=== PATIENT | female | born 1965 | race Caucasian/White ===

== ENCOUNTER 2019-03-12 06:33 | Day surgery (SDC) | payer BC ==
[~2019-03-12 06:33] MED LIST: Acetaminophen TAB* 325 MG PO ONE; Buffered Lidocaine 1% SYRIN* 1 ML/SYRINGE INTRADERM ONE; Famotidine IV* 10 MG/ML 2 ML (20 mg) IV ONE; Lactated Ringers 1000 ML Bag* 1,000 ML IV SCH
[2019-03-12] MEDS ORDERED: Famotidine IV* 10 MG/ML 2 ML (20 mg) ONE (07:03)
[2019-03-12] MEDS ORDERED: ceFAZolin 2 GM PREMIX in ORs 2 GM/50 ML BAG IVPB ONE (07:03)
[2019-03-12] MEDS ORDERED: Dexamethasone IV* 4 MG/ML 1 ML (4 MG) ONE ×2 (07:19→07:58)
[2019-03-12] MEDS ORDERED: Bupivacaine 0.5% SDV PF* 30ML VIAL ONE (07:19)
[2019-03-12] MEDS ORDERED: Lidocaine 1% INJ* 10 MG/ML 30 ML SDV ONE (07:19)
[2019-03-12] MEDS ORDERED: Midazolam* 1 MG/ML 2 ML VIAL (2 MG) ONE (07:21)
[2019-03-12] MEDS ORDERED: fentaNYL* 50 MCG/ML 2 ML VIAL (100 MCG VIAL) ONE ×2 (07:21→09:19)
[2019-03-12] MEDS ORDERED: Acetaminophen TAB* 325 MG ONE (07:28)
[2019-03-12] MEDS ORDERED: Acetaminophen IV 1GM/100ML * 100 ML ONE (07:34)
[2019-03-12] MEDS ORDERED: Ondansetron INJ* 2 MG/ML VIAL ONE (07:58)
[2019-03-12] MEDS ORDERED: Lidocaine 2% PF * 5 ML VIAL ONE (07:58)
[2019-03-12] MEDS ORDERED: Ketorolac INJ* 30 MG/ML 1 ML VIAL ONE (07:58)
[2019-03-12] MEDS ORDERED: Propofol* 10 MG/ML 20 ML BTL ONE (07:58)
[2019-03-12] MEDS ORDERED: Naloxone* 0.4 MG/ML 1 ML VIAL IV PRN (08:06)
[2019-03-12] MEDS ORDERED: fentaNYL* 50 MCG/ML 2 ML VIAL (100 MCG VIAL) IV PRN (08:06)
[2019-03-12] MEDS ORDERED: PROCHLORPERAZINE INJ 5 MG/ML 2 ML VIAL IV PRN (08:06)
[2019-03-12] MEDS ORDERED: diPHENhydraMINE IV* 50 MG/ML 1 ml VIAL (BENADRYL) IV PRN (08:06)
[2019-03-12] MEDS ORDERED: Ondansetron INJ* 2 MG/ML VIAL IV PRN (08:06)
[2019-03-12] MEDS ORDERED: Acetaminophen IV 1GM/100ML * 1,000 MG/100 ML VIAL IVPB ONE (08:06)
[2019-03-12] MEDS ORDERED: HYDROcodone/ACETAMIN 5-325 MG* 1 TAB PO PRN ×2 (08:06)
[2019-03-12] MEDS ORDERED: DiMENhydriNATE IV* 50 MG/ML VIAL IV PUSH PRN (08:06)
[2019-03-12] MEDS ORDERED: DiMENhydriNATE IV* 50 MG/ML VIAL ONE (10:55)
[2019-03-12 11:20] VITALS: BP 110/66
--- NOTE | 2019-03-12 13:17 | OP ---
DATE OF OPERATION: 03/12/19 - [facility] DATE OF : 61 SURGEON: Michelet Porter DPM DIRECTOR OF GUIDANCE IN [employer]: None. ANESTHESIA: General. PRE-OPERATIVE DIAGNOSES: 1. Painful bunion deformity with hallux limitus, left foot. 2. Painful second left hammertoe. 3. Painful tailor's bunion deformity, left foot. POST-OPERATIVE DIAGNOSES: 1. Painful bunion deformity with hallux limitus, left foot. 2. Painful second left hammertoe. 3. Painful tailor's bunion deformity, left foot. OPERATIVE PROCEDURE: 1. Bunionectomy with closing-base wedge osteotomy, left foot. 2. Correction of second left hammertoe with PIPJ arthroplasty and MTPJ capsulotomy and extensor hallucis longus tendon lengthening of second digit, left foot. 3. Tailor's bunionectomy. 4. Fifth metatarsal osteotomy, left foot. PATHOLOGY: Degenerative bone. HEMOSTASIS: Pneumatic ankle tourniquet at 250 mmHg. ESTIMATED BLOOD LOSS: Less than 30 cc. MATERIALS: Four of the 3.0 mm cannulated Víctor screws. INDICATIONS: The patient with chronic left forefoot pain and deformity with large bunion and tailor's bunion deformities, contracted second left hammertoe as well, causing pain when wearing shoes and walking. She opts for surgery at this time in an attempt to decrease her deformity, decrease her pain, and improve her function and ability to wear shoes without pain. DESCRIPTION OF PROCEDURE: The patient was brought to the operating room and placed on the operating table in supine position. General anesthesia was administered by the anesthesia department. The left foot was then prepped and draped in the usual fashion. Peripheral nerve block was performed with 1:1 mixture of 1% lidocaine plain and 0.5% Marcaine plain. The left foot was then exsanguinated with an Esmarch bandage and pneumatic ankle tourniquet was inflated to 250 mmHg about a well-padded left ankle. Attention was directed to the dorsomedial aspect of the left great toe joint, where a curvilinear incision was made. The incision was deepened through the subcutaneous tissues with care being taken to retract the neurovascular structures and cauterize superficial bleeders as needed. An inverted L capsular incision was made to allow for exposure of the first metatarsal. There was noted to be hypertrophic bone medially and this was resected with the sagittal saw in a manner to preserve sagittal groove. A traditional lateral release was performed including release of the extensor hallucis brevis tendon. The McGlamry elevator was then needed to free plantar lateral adhesions of the sesamoid apparatus. This allowed for relaxation of all lateral contractures. Next, a closing-base wedge osteotomy was performed and temporary fixation with the bone clamp and then with the wires from the screw set and the positioning was assessed with the C- arm and using standard technique, a two of 3.0 mm cannulated Víctor screws were placed across the osteotomy site. The temporary fixation was removed. The osteotomy was inspected and found to be solid with no detectable motion or gapping. Again, final correction and fixation was assessed with the C-arm. A power robb was used to smooth any rough edges. The surgical site was flushed with copious amounts of normal sterile saline. The medial capsulorrhaphy was performed resecting some of the redundant medial capsule. The capsular and periosteal tissues were then reapproximated and secured with 2-0 Vicryl. Subcutaneous tissues were reapproximated with 4-0 Vicryl and skin was closed with 5-0 nylon. Attention was then directed to the second digit where a two symmetrical transversely oriented incision were made at the dorsal aspect of the PIPJ. skin wedges were removed and dissection was carried down to the joint capsule. Care was taken to retract neurovascular structures. Transverse tenotomy capsulotomy was performed. Collateral ligaments were also incised for exposure of the proximal phalangeal head of the second toe. The phalangeal head was resected with sagittal saw. A power robb was used to smooth rough edges. The surgical site was flushed with copious amounts of normal sterile saline. There was still some mild contracture dorsally at the metatarsophalangeal joint level. So, a small curvilinear incision was made at level of the toe and dissected into the subcutaneous tissues. Care being taken to retract neurovascular structures and cauterize superficial bleeders as needed. Extensor digitorum longus tendon was identified. Z-tendon lengthening procedure was performed. Dorsal capsulotomy was also performed to allow for release of the dorsal contractures. The tendon structures were approximated and secured with 4-0 Vicryl. Subcutaneous tissues were approximated in layers with 4-0 Vicryl and the skin was closed with 5-0 nylon. With the foot loaded, a second digit was then corrected in rectus position. Attention was directed to the dorsal lateral aspect of the 5th metatarsophalangeal joint and 5th metatarsal where a linear incision was made. The incision was deepened to subcutaneous tissue with care being taken to retract neurovascular structures and cauterize superficial bleeders as needed. Periosteal and capsular incision was made to allow exposure of the 5th metatarsal. The hypertrophic bone at the lateral aspect was resected with sagittal saw. A power robb was used to smooth rough edges. The surgical site was flushed with copious amounts of normal sterile saline. Next, a closing-base wedge osteotomy was performed at the proximal 5th metatarsal and with the osteotomy reduced. Temporary fixation was achieved with the bone clamp and two wires from the screw set. The correction was assessed with the C-arm and then using standard technique, two of 3.0 mm cannulated Víctor screws were placed across the osteotomy site. Temporary fixation removed. The osteotomy was found to be solid. No detectable motion or gapping. Screws were all found to be 2 fingers tight. Again, final positioning and correction was assessed with C-arm. The surgical site was flushed with copious amounts of normal sterile saline. The periosteal and capsular tissues were reapproximated and secured with 4-0 Vicryl. Subcutaneous tissues were closed in layers of 4-0 Vicryl and the skin was closed with 5-0 nylon. A 12 mg of dexamethasone phosphate was infiltrated in total about the 3 surgical sites and each incision was dressed with Xeroform gauze, 4x4 gauze, Beka, and light Coban wrap. The pneumatic ankle tourniquet was deflated about the left ankle and a prompt hyperemic response was noted in all 5 digits of the patient's left foot. Having appeared to tolerate the procedure and anesthesia well, the patient was transported via cart from the operating room to recovery in satisfactory condition with cap refill less than 3 seconds to all digits of the left foot. [id number]/CPS #: [id number] [facility]
== END 2019-03-12 11:40 | disposition home or self-care (01) ==
LOC: OREAST 06:33
PROVIDERS: ATTEND Podiatrist Foot Surgery
DX: M21.612 Bunion of left foot (principal); M20.5X2 Other deformities of toe(s) (acquired), left foot; M20.42 Other hammer toe(s) (acquired), left foot; M21.622 Bunionette of left foot; I10 Essential (primary) hypertension; G47.33 Obstructive sleep apnea (adult) (pediatric); K21.0 Gastro-esophageal reflux disease with esophagitis; M06.9 Rheumatoid arthritis, unspecified; M54.40 Lumbago with sciatica, unspecified side; F41.9 Anxiety disorder, unspecified
CPT/HCPCS: 76000; 81025; 88304; 88311; A9270-GY; C1713; C1776; J0690; J1100; J1240; J1885; J2250; J2405; J2704; J3010